=== PATIENT | male | born 1995 | race Two or more races ===

== ENCOUNTER 2016-07-16 02:59 | Emergency (ER) | payer SELFPAY ==
[~2016-07-16] VITALS: Ht 188 cm; Wt 140.0 kg
[~2016-07-16 02:59] MED LIST: MOTRIN800 MG PO; NORCO 5/3251 TABLET PO; ULTRAM50 MG PO; ZOFRAN4 MG PO
[2016-07-16 04:03] LABS: HEMATOCRIT 40.5 % (38.0-50.0); MCH 25.7 PG (29.0-34.0); MCHC 33.6 G/DL (30.0-36.0); MCV 76.6 FL (86-99); MEAN PLAT.VOLUME 11.3 uM^3 (9.0-12.4); PLATELET COUNT 306 K/uL (156-360); RBC DIS.WIDTH-CV 13.9 % (11.8-14.6); RBC DIS.WIDTH-SD 38.2 % (39-53); RED BLOOD COUNT 5.29 M/uL (4.00-5.50); WHITE BLOOD COUNT 16.8 K/uL (4.1-10.2)
[2016-07-16 04:25] LABS: CHLORIDE 107 mEq/L (99-109); POTASSIUM 3.5 mEq/L (3.7-5.4); SODIUM 140 mEq/L (136-147)
[2016-07-16 04:28] LABS: GLUCOSE 120 mg/dL (70-99)
[2016-07-16 04:29] LABS: ANION GAP 14 MEQ/L (2-14); TOTAL BILIRUBIN 0.8 mg/dL (0.0-1.0)
[2016-07-16 04:31] LABS: GFR ESTIMATE (CALCULATED) > 59 mL/min/; SERUM ETHYL ALCOHOL 109 mg/dL
[2016-07-16 04:32] LABS: ALKALINE PHOSPHATASE 97 IU/L (3-129)
[2016-07-16 04:33] LABS: UREA NITROGEN (BUN) 10 mg/dL (9-23)
[2016-07-16 04:35] LABS: SALICYLATE < 5.0 MG/DL (15-30)
[2016-07-16 04:36] LABS: CREATINE KINASE 797 IU/L (1-294); LIPASE 9 U/L (1.0-51.0)
[2016-07-16 08:24] LABS: AMPHETAMINE NEGATIVE (500 ng/mL); BARBITURATES NEGATIVE (200 ng/mL); BENZODIAZEPINES NEGATIVE (150 ng/mL); COCAINE NEGATIVE (150 ng/mL); INTERNAL CONTROLS VALID? YES; METHADONE NEGATIVE (200 ng/mL); METHAMPHETAMINE NEGATIVE (500 ng/mL); OPIATES (MORPHINE) NEGATIVE (100 ng/mL); OXYCODONE NEGATIVE (100 ng/mL); PHENCYCLIDINE NEGATIVE (25 ng/mL); PROPOXYPHENE NEGATIVE (300 ng/mL); THC CANNABINOIDS NEGATIVE (50 ng/mL); TRICYCLIC ANTIDEPRESSANTS NEGATIVE (300 ng/mL)
[2016-07-16 10:50] VITALS: BP 108/68
== END 2016-07-16 10:51 | disposition home or self-care (01) ==
LOC: EME → EDBD 02:59 → EME 02:59
PROVIDERS: Emergency Medicine
DX: F10.121 Alcohol abuse with intoxication delirium (principal); E87.6 Hypokalemia; R45.1 Restlessness and agitation; R07.9 Chest pain, unspecified; Z78.1 Physical restraint status
CPT/HCPCS: 71010; 80053; 82550; 82803; 83690; 85027; 93005; 99281; 99285; G0480; J1630; J2060; J2250; J2405; J7030

== ENCOUNTER 2016-12-21 19:15 | Emergency (ER) | payer SELFPAY ==
[~2016-12-21] VITALS: Ht 190.5 cm; Wt 133.1 kg
[2016-12-21 20:46] LABS: EOSINOPHIL COUNT 0.1 K/uL (0-0.3); HEMATOCRIT 42.6 % (38.0-50.0); IMMATURE GRANULOCYTE (%) 0.3 % (0.0-0.7); IMMATURE GRANULOCYTE COUNT 0.1 K/uL; INSTRUMENT ABS NEUTROPHIL CT 11.2 K/uL; MCH 25.4 PG (29.0-34.0); MCHC 32.4 G/DL (30.0-36.0); MCV 78.5 FL (86-99); MONOCYTE (%) 7.3 % (3-12); MONOCYTE COUNT 1.1 K/uL (0-0.8); NEUTROPHIL (%) 77.6 % (45-76); NEUTROPHIL COUNT 11.2 K/uL (1.8-6.4); RBC DIS.WIDTH-CV 13.5 % (11.8-14.6); RBC DIS.WIDTH-SD 38.5 % (39-53); RED BLOOD COUNT 5.43 M/uL (4.00-5.50); WHITE BLOOD COUNT 14.5 K/uL (4.1-10.2)
[2016-12-21 20:57] LABS: CHLORIDE 106 mEq/L (99-109); POTASSIUM 3.7 mEq/L (3.7-5.4); SODIUM 140 mEq/L (136-147)
[2016-12-21 20:59] LABS: GLUCOSE 83 mg/dL (70-99)
[2016-12-21 21:00] LABS: ANION GAP 11 MEQ/L (2-14)
[2016-12-21 21:02] LABS: SERUM ETHYL ALCOHOL < 10 mg/dL
[2016-12-21 21:03] LABS: GFR ESTIMATE (CALCULATED) > 59 mL/min/
[2016-12-21 21:04] LABS: ALKALINE PHOSPHATASE 104 IU/L (3-129)
[2016-12-21 21:05] LABS: UREA NITROGEN (BUN) 14 mg/dL (9-23)
[2016-12-21 21:06] LABS: SALICYLATE < 5.0 MG/DL (15-30)
[2016-12-21 21:22] LABS: MEAN PLAT.VOLUME 11.7 uM^3 (9.0-12.4); PLAT.SUFFICIENCY ADEQUATE; PLATELET COUNT 238 K/uL (156-360)
[2016-12-21 21:44] LABS: ADD MEDTOX COMMENT Y; AMPHETAMINE NEGATIVE (500 ng/mL); BARBITURATES NEGATIVE (200 ng/mL); BENZODIAZEPINES NEGATIVE (150 ng/mL); COCAINE NEGATIVE (150 ng/mL); INTERNAL CONTROLS VALID? YES; METHADONE NEGATIVE (200 ng/mL); METHAMPHETAMINE NEGATIVE (500 ng/mL); OPIATES (MORPHINE) NEGATIVE (100 ng/mL); OXYCODONE NEGATIVE (100 ng/mL); PHENCYCLIDINE NEGATIVE (25 ng/mL); PROPOXYPHENE NEGATIVE (300 ng/mL); THC CANNABINOIDS PRESUMPTIVE POSITIVE (50 ng/mL); TRICYCLIC ANTIDEPRESSANTS NEGATIVE (300 ng/mL)
[2016-12-21 23:00] VITALS: BP 121/78
== END 2016-12-21 23:44 | disposition home or self-care (01) ==
LOC: EME → EDBD 19:15 → EME 19:15
PROVIDERS: Emergency Medicine
DX: R45.1 Restlessness and agitation (principal); F43.25 Adjustment disorder with mixed disturbance of emotions and conduct; F90.1 Attention-deficit hyperactivity disorder, predominantly hyperactive type; Z88.0 Allergy status to penicillin
CPT/HCPCS: 80053; 84999; 85025; 90837; 99281; 99285; G0480; J1630; J2250

== ENCOUNTER 2016-12-28 08:04 | Emergency (ER) | payer OTHER ==
[2016-12-28 08:23] LABS: EOSINOPHIL (%) 3.9 % (0-5); EOSINOPHIL COUNT 0.4 K/uL (0-0.3); HEMATOCRIT 44.3 % (38.0-50.0); IMMATURE GRANULOCYTE (%) 0.4 % (0.0-0.7); INSTRUMENT ABS NEUTROPHIL CT 6.4 K/uL; LYMPHOCYTE COUNT 2.2 K/uL (1.0-2.8); MCH 25.8 PG (29.0-34.0); MCHC 32.3 G/DL (30.0-36.0); MEAN PLAT.VOLUME 11.6 uM^3 (9.0-12.4); MONOCYTE (%) 7.5 % (3-12); MONOCYTE COUNT 0.7 K/uL (0-0.8); NEUTROPHIL (%) 65.6 % (45-76); NEUTROPHIL COUNT 6.4 K/uL (1.8-6.4); PLATELET COUNT 260 K/uL (156-360); RBC DIS.WIDTH-CV 13.4 % (11.8-14.6); RBC DIS.WIDTH-SD 38.8 % (39-53); RED BLOOD COUNT 5.54 M/uL (4.00-5.50); WHITE BLOOD COUNT 9.7 K/uL (4.1-10.2)
[2016-12-28 08:43] LABS: AMYLASE 51 IU/L (1-118); ANION GAP 6 MEQ/L (2-14); CHLORIDE 104 MEQ/L (99-109); POTASSIUM 4.1 MEQ/L (3.7-5.4); SAMPLE HEMOLYSIS CHECK 0; SAMPLE ICTERIC CHECK 0; SAMPLE LIPEMIA CHECK 0; SODIUM 138 MEQ/L (136-147)
[2016-12-28 08:56] LABS: GFR ESTIMATE (CALCULATED) > 59 mL/min/; GLUCOSE 104 mg/dL (70-99); LIPASE 10 U/L (1.0-51.0); SERUM ETHYL ALCOHOL < 10 mg/dL; UREA NITROGEN (BUN) 12 mg/dL (9-23)
== END 2016-12-28 10:55 | disposition home or self-care (01) ==
LOC: TRA 08:04
PROVIDERS: Emergency Medicine
DX: S16.1XXA Strain of muscle, fascia and tendon at neck level, initial encounter (principal); R51 Headache; M25.511 Pain in right shoulder; M25.512 Pain in left shoulder; V57.5XXA Driver of pick-up truck or van injured in collision with fixed or stationary object in traffic accident, initial encounter; Y92.411 Interstate highway as the place of occurrence of the external cause
CPT/HCPCS: 70450; 72125; 80048; 81003; 82150; 83690; 85025; 86900; 86901; 90832; 99281; 99285; G0480; J2405; J3010

== ENCOUNTER 2017-02-06 15:12 | Emergency (ER) | payer OTHER ==
[~2017-02-06] VITALS: Ht 190.5 cm; Wt 127.0 kg
[2017-02-06 16:07] LABS: HEMATOCRIT 44.1 % (38.0-50.0); MCH 25.5 PG (29.0-34.0); MCHC 32.2 G/DL (30.0-36.0); MCV 79.3 FL (86-99); RBC DIS.WIDTH-CV 13.9 % (11.8-14.6); RED BLOOD COUNT 5.56 M/uL (4.00-5.50); WHITE BLOOD COUNT 12.1 K/uL (4.1-10.2)
[2017-02-06 16:15] LABS: CHLORIDE 107 mEq/L (99-109); POTASSIUM 3.8 mEq/L (3.7-5.4); SODIUM 144 mEq/L (136-147)
[2017-02-06 16:17] LABS: GLUCOSE 92 mg/dL (70-99)
[2017-02-06 16:18] LABS: ANION GAP 15 MEQ/L (2-14)
[2017-02-06 16:20] LABS: SERUM ETHYL ALCOHOL < 10 mg/dL
[2017-02-06 16:21] LABS: GFR ESTIMATE (CALCULATED) > 59 mL/min/
[2017-02-06 16:22] LABS: UREA NITROGEN (BUN) 6 mg/dL (9-23)
[2017-02-06 16:59] LABS: PLAT.SUFFICIENCY ADEQUATE; PLATELET CLUMPS PRESENT - PLATELET COUNT APPEARS ADQ.; PLATELET COUNT UNABLE TO REPORT K/uL (156-360)
[2017-02-06 18:10] LABS: ADD MEDTOX COMMENT Y; AMPHETAMINE NEGATIVE (500 ng/mL); BARBITURATES NEGATIVE (200 ng/mL); BENZODIAZEPINES NEGATIVE (150 ng/mL); COCAINE NEGATIVE (150 ng/mL); INTERNAL CONTROLS VALID? YES; METHADONE NEGATIVE (200 ng/mL); METHAMPHETAMINE NEGATIVE (500 ng/mL); OPIATES (MORPHINE) NEGATIVE (100 ng/mL); OXYCODONE NEGATIVE (100 ng/mL); PHENCYCLIDINE NEGATIVE (25 ng/mL); PROPOXYPHENE NEGATIVE (300 ng/mL); THC CANNABINOIDS PRESUMPTIVE POSITIVE (50 ng/mL); TRICYCLIC ANTIDEPRESSANTS NEGATIVE (300 ng/mL)
[2017-02-06 18:13] VITALS: BP 141/76
== END 2017-02-06 18:14 | disposition home or self-care (01) ==
LOC: EME 15:12
PROVIDERS: Emergency Medicine
DX: T42.6X1A Poisoning by other antiepileptic and sedative-hypnotic drugs, accidental (unintentional), initial encounter (principal); F12.90 Cannabis use, unspecified, uncomplicated; S70.212A Abrasion, left hip, initial encounter; S60.511A Abrasion of right hand, initial encounter; W18.39XA Other fall on same level, initial encounter; Z88.1 Allergy status to other antibiotic agents
CPT/HCPCS: 80048; 84999; 85027; 99281; 99284; G0480

== ENCOUNTER 2017-10-02 06:46 | Emergency (ER) | payer OTHER ==
[~2017-10-02] VITALS: Ht 195.6 cm; Wt 109.0 kg
[2017-10-02 07:22] LABS: HEMATOCRIT 44.1 % (38.0-50.0); HEMOGLOBIN 14.7 G/DL (12.5-16.6); MCH 26.6 PG (29.0-34.0); MCHC 33.3 G/DL (30.0-36.0); MCV 79.9 FL (86-99); RBC DIS.WIDTH-CV 13.8 % (11.8-14.6); RBC DIS.WIDTH-SD 40.3 % (39-53); RED BLOOD COUNT 5.52 M/uL (4.00-5.50); WHITE BLOOD COUNT 8.7 K/uL (4.1-10.2)
[2017-10-02 07:53] LABS: ALBUMIN 4.5 G/DL (3.2-4.8); ALKALINE PHOSPHATASE 85 IU/L (3-129); ALT (GPT) 16 IU/L (3-49); AST (GOT) 19 IU/L (2-34); CHLORIDE 106 MEQ/L (99-109); CREATININE 0.9 MG/DL (0.6-1.3); GFR ESTIMATE (CALCULATED) > 59 mL/min/ (58.99-99999); GLUCOSE 94 mg/dL (70-99); POTASSIUM 3.9 MEQ/L (3.7-5.4); SODIUM 139 MEQ/L (136-147); TOTAL PROTEIN 7.1 G/DL (6.4-8.3); UREA NITROGEN (BUN) 10 mg/dL (9-23)
[2017-10-02 08:06] LABS: PLATELET COUNT 245 K/uL (156-360)
[2017-10-02] MEDS ORDERED: ZOFRAN ODT4 MG PO (09:03)
[2017-10-02] MEDS ORDERED: BENTYL10 MG PO (09:03)
[2017-10-02] MEDS ORDERED: IMODIUM A-D2 M2 PO (09:03)
[2017-10-02 09:20] VITALS: BP 106/75
== END 2017-10-02 09:55 | disposition home or self-care (01) ==
LOC: EME 06:46
PROVIDERS: Nurse Practitioner Family
DX: K52.9 Noninfective gastroenteritis and colitis, unspecified (principal); G47.00 Insomnia, unspecified; F43.10 Post-traumatic stress disorder, unspecified; Z88.0 Allergy status to penicillin
CPT/HCPCS: 74177; 80053; 85027; 99281; 99285; J1885; J2405; J7030